=== PATIENT | male | born 1995 ===

== ENCOUNTER 2019-10-18 14:16 | Emergency (ER) | payer OTHER ==
[2019-10-18 14:43] VITALS: BP 140/95
--- NOTE | 2019-10-18 15:05 | Emergency Department Report ---
ED General Adult HPI - General Chief complaint: Medical Clearance Stated complaint: EDITH MONOXIDE POISIONING Time Seen by Provider: 10/18/19 15:02 Source: patient Mode of arrival: Ambulatory Limitations: No Limitations - History of Present Illness Initial comments: 4 police officers were involved in an incident in a home. I am told by the [facility] EMS Captain that a young individual was found in the home with injuries as evidenced by blood on his face. The officers believed that they smelled something in the air. However, no smoke found per the Captain. Is uncertain as to whether there might have been some sort of lab or chemicals at the scene. Further information may be forthcoming. All 4 officers developed moderate headaches and nausea. Overall were placed on 100% nonrebreather masks upon my order when I became aware of the patients. Dr. Ojeda is a 24 year old [facility] medics who responded to the scene. He estimates he was on the scene for about 15 minutes. He was placed on a nonrebreather when he arrived in the emergency department. He is completely asymptomatic at the time of my encounter. He denied headache, nausea, dizziness, shortness of breath or chest pain. He experienced no confusion. Associated Symptoms: denies other symptoms - Related Data Allergies Allergy/AdvReac Type Severity Reaction Status Date / Time No Known Allergies Allergy Unverified 10/18/19 14:43 ED Review of Systems ROS: Stated complaint: EDITH MONOXIDE POISIONING Other details as noted in HPI Constitutional: denies: chills, fever Eyes: eye discharge. denies: eye pain, vision change ENT: denies: ear pain, throat pain Respiratory: denies: cough, shortness of breath, wheezing Cardiovascular: denies: chest pain, palpitations Endocrine: no symptoms reported Gastrointestinal: denies: abdominal pain, nausea, diarrhea Genitourinary: denies: urgency, dysuria Musculoskeletal: denies: back pain, arthralgia Skin: denies: rash, lesions Neurological: denies: headache, weakness, paresthesias Psychiatric: denies: anxiety, depression Hematological/Lymphatic: denies: easy bleeding, easy bruising ED Past Medical Hx - Past Medical History Previous Medical History?: No - Surgical History Past Surgical History?: No - Social History Smoking Status: Never Smoker Substance Use Type: Alcohol ED Physical Exam - General Limitations: No Limitations General appearance: alert, in no apparent distress - Head Head exam: Present: atraumatic, normocephalic - Eye Eye exam: Present: normal appearance, PERRL, EOMI. Absent: scleral icterus - ENT ENT exam: Present: mucous membranes moist - Neck Neck exam: Present: normal inspection. Absent: meningismus - Respiratory Respiratory exam: Present: normal lung sounds bilaterally. Absent: respiratory distress - Cardiovascular Cardiovascular Exam: Present: regular rate, normal rhythm. Absent: systolic murmur, diastolic murmur, rubs, gallop - GI/Abdominal GI/Abdominal exam: Present: soft, normal bowel sounds. Absent: distended, tenderness - Rectal Rectal exam: Present: deferred - Extremities Exam Extremities exam: Present: normal inspection - Back Exam Back exam: Present: normal inspection - Neurological Exam Neurological exam: Present: alert, oriented X3, CN II-XII intact. Absent: motor sensory deficit - Psychiatric Psychiatric exam: Present: normal affect, normal mood - Skin Skin exam: Present: warm, dry, intact, normal color. Absent: rash ED Course Vital Signs 10/18/19 14:39 Temperature 98.5 F Pulse Rate 104 H Respiratory 20 Rate Blood Pressure 140/95 O2 Sat by Pulse 99 Oximetry - Reevaluation(s) Reevaluation #1: I discussed the care and management with Dr. 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 Patient is completely asymptomatic at the time of my encounter a few minutes ago. Dr. Pathak recommended 6 hours of nonrebreather oxygen therapy. After that time, the patient's may be released without repeating their carboxyhemoglobin level. 10/18/19 10/18/19 15:58 10/18/19 16:08 We awaiting Mr. Ojeda's carboxyhemoglobin level. If it is approximately 10 or greater, he will remain on high flow O2 nonrebreather for 6 hours. Critical care attestation.: If time is entered above; I have spent that time in minutes in the direct care of this critically ill patient, excluding procedure time. ED Disposition Clinical Impression: Carbon monoxide exposure Disposition: DC-01 TO HOME OR SELFCARE Is pt being admited?: No Does the pt Need Aspirin: No Condition: Stable Instructions: Carbon Monoxide Exposure (ED) Additional Instructions: Return if any further problem. Time of Disposition: 16:09
[2019-10-18 16:29] LABS: ABG Base Excess -3.2 mmol/L (-2.0-3.0); ABG HCO3 21.6 mmol/L (20.0-26.0); ABG Methemoglobin 0.5 % (0.0-1.5); ABG Oxygen Saturation 99.6 % (95.0-99.0); ABG PCO2 37.9 mm Hg; ABG PH 7.372 pH Units (7.350-7.450)
[2019-10-18 16:30] LABS: ABG PO2 514.2 mm Hg (80.0-90.0)
== END 2019-10-18 17:50 | disposition home or self-care (01) ==
LOC: ED 14:16
DX: T58.91XA Toxic effect of carbon monoxide from unspecified source, accidental (unintentional), initial encounter (principal); Y92.89 Other specified places as the place of occurrence of the external cause
CPT/HCPCS: 82375; 82803; 94760; 99284